=== PATIENT | male | born 1970 | race Caucasian/White ===

== ENCOUNTER 2016-09-11 16:09 | Emergency (ER) | payer MEDICAID ==
[~2016-09-11] VITALS: Wt 78.0 kg
[~2016-09-11 16:09] MED LIST: METFORMIN; MOTRIN; NO NEW MEDS
[2016-09-11] MEDS ORDERED: MTF1000T PO (17:53)
[2016-09-11] MEDS ORDERED: MECLIZINE 12.5 MG TAB PO ONE (18:00)
--- NOTE | 2016-09-11 20:19 | RADRPT ---
PROCEDURE: CT Brain without contrast. CLINICAL INDICATION: Vertigo and dizziness for 2 days. TECHNIQUE: A CT of the brain without contrast was performed utilizing axial sections from the skul l base through the vertex. The patient was scanned without intravenous contrast enhancement. Sagitta l and coronal reformatted images were obtained using the data from the axial images. Total exam DLP is 720.23 mGy-cm. CTDIvol is 44.93 mGy. One or more of the following dose reduction techniques we re used: Automated exposure control, adjustment of the mA and/or kV according to patient size, use o f iterative reconstruction technique. COMPARISON: None available FINDINGS: There is normal hu-white matter differentiation. The ventricles and cisterns are normal. There is no intracranial hemorrhage or space-occupying lesion. There is no skull fracture or lytic lesion. IMPRESSION: 1. Normal noncontrast CT scan of the brain. RPTAT: QQ .Geremias Damian MD, MD Date Time Electronically viewed and signed by .Geremias Damian MD, on 09/11/2016 20:18 .R/
[2016-09-11] MEDS ORDERED: MECL12.574 PO (20:48)
--- NOTE | 2016-09-11 20:51 | ERD ---
ER Documentation Chief Complaint Date/Time DATE: 09/11/16 TIME: 20:49 Chief Complaint DIZZY X 2 DAYS HPI This is a 45-year-old male complains of 2 days of room spinning. The patient states that if he turns his head or stands up too fast the room will spin. He said this onset was sudden and severe. He says that he keeps his head still the symptoms will go away. He has no numbness weakness no speech or visual change, focal neurological complaints. No headache no recent illness no palpitations chest pain dizziness shortness of breath. ROS All systems reviewed and are negative except as per history of present illness. Medications Home Meds Active Scripts Meclizine Hcl* (Antivert*) 12.5 Mg Tab, 25 MG PO Q6H Y for DIZZINESS, #30 TAB Prov:GIAN CASTANEDA DO 09/11/16 Reported Medications Metformin* (Glucophage*) 1,000 Mg Tablet, 1000 MG PO BID, #60 TAB 09/11/16 Discontinued Reported Medications [No New Meds] No Conflict Check 05/20/11 [Metformin] No Conflict Check 02/17/10 [Motrin] No Conflict Check 02/17/10 Allergies Allergies: Coded Allergies: No Known Allergy (Unverified , 05/20/11) PMhx/Soc History of Surgery: Yes (Umbilical hernia) Anesthesia Reaction: No Hx Neurological Disorder: No Hx Respiratory Disorders: No Hx Cardiac Disorders: No Hx Psychiatric Problems: No Hx Miscellaneous Medical Probl: Yes (dm) Hx Alcohol Use: Yes Hx Substance Use: No Hx Tobacco Use: No Smoking Status: Never smoker FmHx Family History: No coronary disease Physical Exam Vitals Vital Signs Date Time Temp Pulse Resp B/P Pulse Ox O2 Delivery O2 Flow Rate FiO2 09/11/16 20:19 85 18 145/95 97 Room Air 09/11/16 18:04 86 20 149/99 98 Room Air 09/11/16 17:03 98.1 78 18 150/86 98 Physical Exam Const: Well-developed, well-nourished Head: Atraumatic, normocephalic Eyes: Normal Conjunctiva, PERRLA, EOMI, normal sclera, no nystagmus ENT: Normal External Ears, Nose and Mouth, moist mucus membranes. Neck: Full range of motion. No meningismus, no lymphadenopathy. Resp: Clear to auscultation bilaterally, no wheezing, rhonchi, rales Cardio: Regular rate and rhythm, no murmurs, S1 S2 present Abd: Soft, non tender x 4, non distended. Normal bowel sounds, no guarding or rebound, no pulsitile abdominal masses or bruits Skin: No petechiae or rashes, no ecchymosis , no maculopapular rash Back: No midline or flank tenderness Ext: No cyanosis, or edema, FROM x 4, normal inspection, neurovascularly intact x 4 Neur: Awake and alert, STR 5/5 x 4, sensation intact x 4, no focal findings, cerebellum intact, positive Hallpike left Psych: Normal Mood and Affect Results 24 hrs Laboratory Tests Test 09/11/16 17:49 Bedside Glucose 262mg/dL Current Medications Medications (Trade) Dose Ordered Sig/Brando Route PRN Reason Start Time Stop Time Status Last Admin Dose Admin Meclizine HCl (Antivert) 25 mg ONCE ONCE PO 09/11/16 18:00 09/11/16 18:01 DC 09/11/16 17:45 Procedures/MDM PROCEDURE: CT Brain without contrast. CLINICAL INDICATION: Vertigo and dizziness for 2 days. TECHNIQUE: A CT of the brain without contrast was performed utilizing axial sections from the skull base through the vertex. The patient was scanned without intravenous contrast enhancement. Sagittal and coronal reformatted images were obtained using the data from the axial images. Total exam DLP is 720.23 mGy-cm. CTDIvol is 44.93 mGy. One or more of the following dose reduction techniques were used: Automated exposure control, adjustment of the mA and/or kV according to patient size, use of iterative reconstruction technique. COMPARISON: None available FINDINGS: There is normal hu-white matter differentiation. The ventricles and cisterns are normal. There is no intracranial hemorrhage or space-occupying lesion. There is no skull fracture or lytic lesion. IMPRESSION: 1. Normal noncontrast CT scan of the brain. RPTAT: QQ .Geremias Damian MD, MD Date Time Electronically viewed and signed by .Geremias Damian MD, on 09/11/2016 20:18 .R/ CC: GIAN CASTANEDA DO Patient says he feels better after Antivert Clearly a peripheral vertigo not a central component. We will discharge home with Antivert and precautions Departure Diagnosis: Primary Impression: Vertigo Condition: Stable Patient Instructions: Vertigo, Unspecified GIAN CASTANEDA DO Sep 11, 2016 20:51
[2016-09-11 21:07] VITALS: BP 150/55; PULSE 85; RESP 18
== END 2016-09-11 21:08 | disposition home or self-care (01) ==
LOC: FTE 16:09
DX: R42 Dizziness and giddiness (principal); E11.9 Type 2 diabetes mellitus without complications; Z79.84 Long term (current) use of oral hypoglycemic drugs
CPT/HCPCS: 70450; 82962; 93005; Z7502; Z7610